=== PATIENT | male | born 1970 | race Caucasian/White ===

== ENCOUNTER → 2025-08-10 | Outpatient (CLI) | payer MEDICAID, SELFPAY ==
--- NOTE | 2025-08-10 | XR_ITS ---
EXAMINATION: Cervical spine 3 views TECHNIQUE: AP and lateral coned AP odontoid cervical spine 3 views Date and time: August 10, 2025, 0735 hours INDICATIONS: Neck pain, chronic diagnosis ankylosing spondylitis FINDINGS: Moderate osteopenia. Satisfactory line mid cervical vertebral bodies. No cervical fracture. Intact odontoid. Mild cervical spondylosis. No significant disc narrowing IMPRESSION: Mild cervical spondylosis
--- NOTE | 2025-08-10 | XR_ITS ---
EXAMINATION: Lumbar spine 3 views TECHNIQUE: AP lateral, lateral lower lumbar spine 3 views Date and time: August 10, 2025, 0741 hours comparison April 25, 2024 INDICATIONS: Low back pain chronic, diagnosis ankylosing spondylitis FINDINGS: 3 mm calculus overlying lower pole right kidney Prominent osteopenia Partial visualization bilateral hip arthroplasties No acute lumbar fracture Moderate lumbar spondylosis Diffuse mild to moderate lumbar degenerative disc disease, most prominent at L5-S1 No spondylolisthesis IMPRESSION: Diffuse mild to moderate lumbar degenerative disc disease Fusion of the lumbar vertebral bodies is not depicted 3 mm calculus overlying lower pole right kidney
--- NOTE | 2025-08-10 | XR_ITS ---
EXAMINATION: Thoracic spine 3 views TECHNIQUE: AP lateral: Lateral upper dorsal spine 3 views Date and time: August 10, 2025, 0738 hours INDICATIONS: Diagnosis ankylosing spondylitis, back pain months FINDINGS: Moderate osteopenia Prominent osteophyte left lateral margin [id number]-[id number] Mild diffuse thoracic disc narrowing No thoracic fracture IMPRESSION: Mild thoracic disc narrowing
== END | disposition home or self-care (01) ==
LOC: CDIM 07:08
PROVIDERS: PCP Nurse Practitioner; Referring Provider Physician Assistant; Visit Provider Physician Assistant
DX: M47.812 Spondylosis without myelopathy or radiculopathy, cervical region (principal); M51.360 Other intervertebral disc degeneration, lumbar region with discogenic back pain only; M43.26 Fusion of spine, lumbar region; N20.0 Calculus of kidney; M48.04 Spinal stenosis, thoracic region
CPT/HCPCS: 72040; 72070; 72100

== ENCOUNTER → 2025-10-16 | Outpatient (CLI) | payer MEDICAID, SELFPAY ==
--- NOTE | 2025-10-16 16:28 | XR_ITS ---
EXAMINATION: PA lateral 2 views TECHNIQUE: Upright PA lateral chest 2 views Date and time: October 16, 2025, 1632 hours INDICATIONS: Coughing beginning 2 weeks ago FINDINGS: Normal heart size Lungs are clear The osseous structures are intact demineralized IMPRESSION: No active disease
== END | disposition home or self-care (01) ==
LOC: CDIM 16:24
PROVIDERS: Referring Provider Nurse Practitioner Family; Visit Provider Nurse Practitioner Family
DX: R05.9 Cough, unspecified (principal)
CPT/HCPCS: 71046